=== PATIENT | male | born 1985 | race Caucasian/White ===

== ENCOUNTER 2025-06-21 22:57 | Emergency (ER) | payer OTHER, SELFPAY ==
[2025-06-21 23:02] VITALS: BP 158/99
[2025-06-21 23:28] LABS: Hematocrit 41.2 % (39.0-52.0); Hemoglobin 14.3 g/dL (13.0-18.0); Mean Corp Hgb Conc. 34.7 g/dL (33.0-37.0); Mean Corpuscular Volume 88.2 fL (80.0-94.0); Nucleated Red Blood Cells % 0 % (-); Platelet Count 177 10^3/uL (130-400); Red Cell Dist. Width 12.5 % (11.5-14.5)
[2025-06-21 23:41] LABS: COVID-19 Antigen Negative (Negative)
[2025-06-21 23:50] LABS: ALT (SGPT) 41 U/L (0-50); AST (SGOT) 29 U/L (17-59); Albumin 4.5 g/dl (3.5-5.0); Alkaline Phosphatase 56 U/L (38-126); Blood Urea Nitrogen 13 mg/dl (9-20); Calcium 9.2 mg/dl (8.4-10.2); Carbon Dioxide 29 mmol/L (22-30); Chloride 105 mmol/L (98-107); Glucose 137 mg/dl (70-99); Potassium 4.4 mmol/L (3.5-5.1); Sodium 140 mmol/L (135-145); Total Protein 7.1 g/dl (6.3-8.2); eGFR > 60.00
[2025-06-22 00:01] LABS: Troponin I < 0.012 ng/ml
--- NOTE | 2025-06-22 02:28 | ED.GENMED ---
ED Provider Triage
-
Patient seen by provider in Triage?: Seen in Triage
History of Present Illness
General
Chief Complaint: Chest Pain
Source: patient and spouse
Exam Limitations: none
Time Seen by Provider: 06/22/25 02:18
History of Present Illness
History of Present Illness:
39-year-old male who presents because he had symptoms of mild nonradiating chest tightness with tachycardia and a home blood pressure measured at 180/120. [place] the symptoms around 9:00 PM. No previous cardiac history. Does have a history of
anxiety for which she stopped medications a year ago, is feeling stressed recently, takes THC Gummies and had 1 today around 6 PM, smokes marijuana occasionally. Recently had a viral upper respiratory illness about a week ago. Still has some nasal
congestion. No cough, pleuritic chest pain, fever, chills, abdominal pain, nausea, vomiting, diarrhea, acute mental status changes.
Past History
Past History
ED Past Medical History: None
Social History
Tobacco: Other (marijuana)
Living: with family
Employment: Employed
Review of Systems
Review of Systems
All Other Systems: ROS reviewed and negative except as documented in HPI and ROS
Phy Exam
General Physical Exam
General Presentation: well appearing and no apparent distress
General Skin: warm
General Habitus: normal
General Mental: alert
Cardiovascular Exam
Cardiovascular Exam: regular rate/rhythm and no edema
Pulmonary Exam
Pulmonary Exam: lungs clear and no respiratory distress
Gastrointestinal Exam
Gastrointestinal Exam: normal bowel sounds, non tender, soft and non distended
Neurological Exam
Neurological Exam: alert and oriented x3
Musculoskeletal Exam
Musculoskeletal Exam: full ROM
Skin Exam
Skin Exam: normal color, warm/dry and no rash
Scores
Heart Score for Chest Pain Patients
STEMI patient?: No
History: Slightly or Non-Suspicious
ECG: Normal
Age: </= 45 years
Risk Factors: No Risk Factors
Troponin: </= Normal Limit
Heart Score for Chest Pain Patients: 0
Heart Score Risk: 2.5% MACE over next 6 weeks
Course
Orders/Labs/Results
Orders:
Orders
06/21/25 23:07
Electrocardiogram (*1) Urgent
Reason for Study: Other
Other Reason for Exam: Respiratory Distress
Cardiac Monitoring- Treatment ONCE
EKG- Treatment ONCE
IV Insert/Care/Rem.- Treatment PRN
CR Chest - 2 Views Urgent
Comment:
Reason For Exam: respiratory distress
O2 Therapy [RESP] Urgent
Titrate/Wean O2 to maintain O2 sat greater than (%): 93
Special Instructions: TO MAINTAIN CONTINUOUS O2 SATS >/= 93%
Pulse Ox/cont/shift [RESP] Urgent
Quantity: 1
Special Instructions: continuous pulse ox
06/21/25 23:21
COVID-19 Antigen Urgent
Source: Nasal Swab
Complete Blood Count/With Diff Urgent
Comprehensive Metabolic Panel Urgent
NT-proBNP Urgent
Troponin I Urgent
Influenza A+B Rapid Molecular Urgent
ALESHA Source: Nasal Swab
Specimen Description:
06/22/25 02:48
Troponin I Urgent
Abnormal Lab Results
06/21/25
23:21
RBC 4.67 L 10^6/uL
(4.70-6.10)
Absolute Lymphs (auto) 1.1 L 10^3/uL
(1.2-3.4)
Absolute Monos (auto) 0.7 H 10^3/uL
(0.1-0.6)
Lymphocytes % 16.9 L %
(20.5-51.1)
Monocytes % 9.6 H %
(1.7-9.3)
Glucose 137 H mg/dl
(70-99)
10/11/25 23:21
06/21/25 23:21
Vital Signs
Initial and Last Documented VS:
Initial Vital Signs
Temp Pulse Resp BP Pulse Ox
98.1 F 136 20 158/99 97
06/21/25 23:02 06/21/25 23:02 06/21/25 23:02 06/21/25 23:02 06/21/25 23:02
Last Documented Vital Signs
Temp Pulse Resp BP Pulse Ox
98.1 F 52 13 121/61 96
06/21/25 23:02 06/22/25 05:00 06/22/25 05:00 06/22/25 05:00 06/22/25 05:00
MDM/Problems Addressed
Differential Diagnosis Includes:
anxiety due to emotional stress/ marijuana, anxiety disorder, ACS, pericarditis, stress
MDM/Problems Addressed:
- Vitals are stabilizing, patients bp is now 158/99
- CBC, CMP unremarkable
- EKG shows sinus tachycardia
- Trops I are normal, repeated trop normal
- Pro BNP normal
- Will discharge patient home with instructions to see public relations account executive within 5 days.
*Pulse Oximetry
SaO2: 95
Oxygen Mode of Delivery: Room air
Patient hypoxic: no
*Critical Care Note
Total Time (30-74mins, 75-104mins- exclusive of procedures): Not Applicable
ED Attending Note
-
Portions of this chart may have been created with voice recognition software.� Occasional wrong word or��sound alike� substitutions may have occurred due to the inherent limitations of voice recognition software.
Discharge Plan
Departure
Patient Disposition: Home (Routine Discharge)
Date of Disposition: 06/22/25
Time of Disposition: 05:24
Patient with high blood pressure during this ER visit?: Yes
Condition: Good
Discharge Problem:
Tachycardia, Anxiety
Instructions: BLOOD PRESSURE
Prescriptions:
No Action
hydroxychloroquine 200 MG tablet
200 mg PO BID
sulfamethoxazole-trimethoprim 1 EACH tablet
1 ea PO BID
cephalexin 500 MG capsule
500 mg PO QID Qty: 27 0RF
Referrals:
[facility] [Provider Group] - Follow up in 5-7 days
Lanre Avalos DO [Family Provider, Family Practice]
Activity Restrictions/Additional Instructions:
Please see public relations account executive within 5 days.
1. Please schedule a follow up appointment as directed. Call first thing tomorrow morning to make an appointment.
2. If indicated, please take your medications as instructed and indicated on discharge paperwork.
3. If any of your symptoms do not improve, or persist, or become more severe within 6-12 hours, please return to the emergency department for further care.
4. Please return to the emergency department if you develop a headache, neck pain/stiffness, fever greater than 100.4F, chest pain, shortness of breath, persistent nausea, vomiting, slurred speech, difficulty walking, numbness/tingling, weakness,
signs of infection or any other symptoms that are worrisome to you.
Please call [phone] if you have any questions
Interventions
Interventions:
*Risk Screen - Suicide Last Done: 06/21/25 23:02
*General Assessment Last Done: 06/21/25 23:02
*Neglect/Abuse Screening Last Done: 06/21/25 23:02
*ED- Fall Risk Assessment Last Done: 06/21/25 23:02
*ED COVID-19 Vaccine History Last Done: 06/21/25 23:02
*ED Influenza Vaccine History Last Done: 06/21/25 23:02
Discharge Date and Time
Print Language: IRAQI
[2025-06-22 02:49] VITALS: BP 109/64
[2025-06-22 03:00] VITALS: BP 109/67
[2025-06-22 03:21] LABS: Troponin I < 0.012 ng/ml
[2025-06-22 03:30] VITALS: BP 115/64
[2025-06-22 04:00] VITALS: BP 115/62
[2025-06-22 04:30] VITALS: BP 119/63
[2025-06-22 05:00] VITALS: BP 121/61
== END 2025-06-22 05:47 | disposition home or self-care (01) ==
LOC: EMR 22:57
PROVIDERS: Emergency Medicine; EMERGENCY PHYSICIAN Student in an Organized Health Care Education/Training Program; FAMILY PHYSICIAN Family Medicine
DX: R00.0 Tachycardia, unspecified (principal); F41.9 Anxiety disorder, unspecified; R03.0 Elevated blood-pressure reading, without diagnosis of hypertension; F12.90 Cannabis use, unspecified, uncomplicated
CPT/HCPCS: 99284; 71046; 80053; 83880; 84484; 85025; 87502; 87811; 93005